=== PATIENT | male | born 1995 | race Caucasian/White ===

== ENCOUNTER 2019-01-05 12:23 | Emergency (ER) | payer BC, OTHER ==
[~2019-01-05] VITALS: Ht 182.9 cm; Wt 117.9 kg
--- NOTE | 2019-01-05 12:38 | ED General ---
General Chief Complaint: Cough/Cold/Flu Symptoms Stated Complaint: COUGHING UP BLOOD Nursing Triage Note: TO TRIAGE WITH COMPLAINTS OF SORE THROAT, FEVER, COUGH, AND COUGHING UP BLOOD. Nursing Sepsis Screen: Possible Sepsis Risk Source of Information: Patient Exam Limitations: No Limitations History of Present Illness Date Seen by Provider: Jan 05, 2019 Time Seen by Provider: 12:36 Initial Comments To ER with reports of sore throat, fever, cough. These began on Wednesday,12/31/18. Fever maximum at home was 101. No vomiting. Denies shortness of breath. The cough was initially nonproductive, then became somewhat productive and then it was noted to have streaks of blood in it. Nonsmoker. No history of this. Timing/Duration: 3-4 Days Severity: Moderate Allergies and Home Medications Allergies Coded Allergies: No Known Drug Allergies (Unverified , 01/05/19) Patient Home Medication List Home Medication List Reviewed: Yes Review of Systems Review of Systems Constitutional: see HPI, chills, fever EENTM: see HPI, nose congestion Respiratory: see HPI, cough Cardiovascular: no symptoms reported Genitourinary: no symptoms reported Musculoskeletal: no symptoms reported Skin: no symptoms reported Psychiatric/Neurological: No Symptoms Reported Hematologic/Lymphatic: No Symptoms Reported Past [id number] Hx Patient Social History Recent Foreign Travel: No Contact w/Someone Who Travel: No Recent Infectious Disease Expo: No Physical Exam Vital Signs Vital Signs - First Documented 01/05/19 12:27 Temp 100.1 Pulse 123 Resp 18 B/P (MAP) 141/106 (118) Pulse Ox 97 O2 Delivery Room Air Capillary Refill : Less Than 3 Seconds Height, Weight, BMI Height: 6'" Weight: 260lbs. oz. 117.095658tn; BMI Method:Stated General Appearance: No Apparent Distress, WD/WN, Obese, Other (is little tachycardic at about 125, normal oxygen saturation at 98%. Because of the tachycardia we'll do labs) Eyes: Bilateral Eye Normal Inspection, Bilateral Eye PERRL, Bilateral Eye EOMI HEENT: PERRL/EOMI, TMs Normal Neck: Full Range of Motion, Normal Inspection Respiratory: No Accessory Muscle Use, No Respiratory Distress; No Wheezing Cardiovascular: Normal Peripheral Pulses, Tachycardia Gastrointestinal: Normal Bowel Sounds, Non Tender, Soft Neurologic/Psychiatric: Alert, Oriented x3 Skin: Normal Color, Warm/Dry Progress/Results/Core Measures Suspected Sepsis Recent Fever Within 48 Hours: Yes Infection Criteria Present: Suspected New Infection New/Unexplained Altered Menta: No Sepsis Screen: Possible Sepsis Risk SIRS Temperature:100.1 Pulse: 123 Respiratory Rate: 18 Laboratory Tests 01/05/19 12:40: White Blood Count 14.4H Blood Pressure 141 /106 Mean: 118 Laboratory Tests 01/05/19 12:40: Creatinine 0.85, INR Comment 1.0, Platelet Count 330, Total Bilirubin 0.3 Results/Orders Lab Results Laboratory Tests Test 01/05/19 12:40 Range/Units White Blood Count 14.4 H 4.3-11.0 10^3/uL Red Blood Count 6.09 H 4.35-5.85 10^6/uL Hemoglobin 17.3 13.3-17.7 G/DL Hematocrit 50 40-54 % Mean Corpuscular Volume 82 80-99 FL Mean Corpuscular Hemoglobin 28 25-34 PG Mean Corpuscular Hemoglobin Concent 35 32-36 G/DL Red Cell Distribution Width 14.0 10.0-14.5 % Platelet Count 330 130-400 10^3/uL Mean Platelet Volume 10.5 H 7.4-10.4 FL Neutrophils (%) (Auto) 54 42-75 % Lymphocytes (%) (Auto) 30 12-44 % Monocytes (%) (Auto) 8 0-12 % Eosinophils (%) (Auto) 8 0-10 % Basophils (%) (Auto) 0 0-10 % Neutrophils # (Auto) 7.8 1.8-7.8 X 10^3 Lymphocytes # (Auto) 4.3 H 1.0-4.0 X 10^3 Monocytes # (Auto) 1.2 H 0.0-1.0 X 10^3 Eosinophils # (Auto) 1.1 H 0.0-0.3 10^3/uL Basophils # (Auto) 0.0 0.0-0.1 10^3/uL Neutrophils % (Manual) 51 % Lymphocytes % (Manual) 25 % Monocytes % (Manual) 11 % Eosinophils % (Manual) 11 % Basophils % (Manual) 0 % Band Neutrophils 2 % Blood Morphology Comment NORMAL Prothrombin Time 13.3 12.2-14.7 SEC INR Comment 1.0 0.8-1.4 D-Dimer 0.33 0.00-0.49 UG/ML Sodium Level 139 135-145 MMOL/L Potassium Level 4.4 3.6-5.0 MMOL/L Chloride Level 100 98-107 MMOL/L Carbon Dioxide Level 30 21-32 MMOL/L Anion Gap 9 5-14 MMOL/L Blood Urea Nitrogen 10 7-18 MG/DL Creatinine 0.85 0.60-1.30 MG/DL Estimat Glomerular Filtration Rate > 60 BUN/Creatinine Ratio 12 Glucose Level 110 H 70-105 MG/DL Calcium Level 9.9 8.5-10.1 MG/DL Corrected Calcium 8.5-10.1 MG/DL Total Bilirubin 0.3 0.1-1.0 MG/DL Aspartate Amino Transf (AST/SGOT) 19 5-34 U/L Alanine Aminotransferase (ALT/SGPT) 32 0-55 U/L Alkaline Phosphatase 113 40-136 U/L Total Protein 7.7 6.4-8.2 GM/DL Albumin 4.7 H 3.2-4.5 GM/DL My Orders Orders - JOSIANE LOWERY APRN Ns Iv 1000 Ml (Sodium Chloride 0.9%) (01/05/19 12:45) Ibuprofen Tablet (Motrin Tablet) (01/05/19 12:45) Cbc With Automated Diff (01/05/19 12:34) Fibrin Degradation Products (01/05/19 12:34) Comprehensive Metabolic Panel (01/05/19 12:34) Protime With Inr (01/05/19 12:34) Chest Pa/Lat (2 View) (01/05/19 12:34) Manual Differential (01/05/19 12:40) Medications Given in ED Current Medications Medications Dose Ordered Sig/[place] Route Start Time Stop Time Status Last Admin Dose Admin Ibuprofen 800 mg ONCE ONCE PO 01/05/19 12:45 01/05/19 12:46 DC 01/05/19 12:45 800 MG Vital Signs/I&O 01/05/19 12:27 Temp 100.1 Pulse 123 Resp 18 B/P (MAP) 141/106 (118) Pulse Ox 97 O2 Delivery Room Air Capillary Refill : Less Than 3 Seconds Blood Pressure Mean: 118 Departure Impression Primary Impression: Bronchitis Disposition: 01 HOME, SELF-CARE Condition: Stable Departure-Patient Inst. Decision time for Depature: 13:26 Patient Instructions: Acute Bronchitis, Adult (DC) Add. Discharge Instructions: 1. Antibiotics/steroids as directed 2. Return if any concerns 3. Follow-up doctor later next week All discharge instructions reviewed with patient and/or family. Voiced un derstanding. Scripts Azithromycin (Azithromycin) 250 Mg Tablet 250 MG PO UD, #6 TAB TAKE 2 TABLETS ON DAY ONE THEN TAKE 1 TABLET DAILY FOR FOUR MORE DAYS Prov: JOSIANE LOWERY APRN 01/05/19 Prednisone (Prednisone) 20 Mg Tab 40 MG PO DAILY, #8 TAB 0 Refills Prov: JOSIANE LOWERY APRN 01/05/19 Work/School Note: Work Release Form Date Seen in the Emergency Department: Jan 05, 2019 Return to Work: Jan 06, 2019 JOSIANE LOWERY APRN Jan 05, 2019 12:37
[2019-01-05] MEDS ORDERED: NS IV 1000 ML 1,000 ML IV SCH (12:45)
[2019-01-05] MEDS ORDERED: IBUPROFEN 800 MG (MOTRIN) TAB PO ONE (12:45)
[2019-01-05 12:48] LABS: BASOPHILS % (AUTO) 0 % (0-10); EOSINOPHILS # (AUTO) 1.1 10^3/uL (0.0-0.3); EOSINOPHILS % (AUTO) 8 % (0-10); HEMATOCRIT 50 % (40-54); HEMOGLOBIN 17.3 G/DL (13.3-17.7); LYMPHOCYTES # (AUTO) 4.3 X 10^3 (1.0-4.0); LYMPHOCYTES % (AUTO) 30 % (12-44); MEAN CORPUSCULAR HEMOGLOBIN 28 PG (25-34); MEAN CORPUSCULAR HGB CONC 35 G/DL (32-36); MEAN CORPUSCULAR VOLUME 82 FL (80-99); MEAN PLATELET VOLUME 10.5 FL (7.4-10.4); MONOCYTES # (AUTO) 1.2 X 10^3 (0.0-1.0); MONOCYTES % (AUTO) 8 % (0-12); NEUTROPHILS # (AUTO) 7.8 X 10^3 (1.8-7.8); NEUTROPHILS % (AUTO) 54 % (42-75); PLATELET COUNT 330 10^3/uL (130-400); WHITE BLOOD COUNT 14.4 10^3/uL (4.3-11.0)
[2019-01-05 13:04] LABS: BAND NEUTROPHILS 2 %; BASOPHILS % (MANUAL) 0 %; EOSINOPHILS % (MANUAL) 11 %; LYMPHOCYTES % (MANUAL) 25 %; MONOCYTES % (MANUAL) 11 %; NEUTROPHILS % (MANUAL) 51 %; RBC MORPH NORMAL
[2019-01-05 13:05] LABS: PROTHROMBIN TIME PATIENT 13.3 SEC (12.2-14.7)
[2019-01-05 13:09] LABS: ALANINE AMINOTRANSFERASE 32 U/L (0-55); ALBUMIN 4.7 GM/DL (3.2-4.5); ALKALINE PHOSPHATASE 113 U/L (40-136); BILIRUBIN,TOTAL 0.3 MG/DL (0.1-1.0); BUN/CREATININE RATIO 12; CALCIUM 9.9 MG/DL (8.5-10.1); CARBON DIOXIDE 30 MMOL/L (21-32); CHLORIDE 100 MMOL/L (98-107); CREATININE SERUM 0.85 MG/DL (0.60-1.30); GFR ESTIMATED > 60; GLUCOSE 110 MG/DL (70-105); POTASSIUM 4.4 MMOL/L (3.6-5.0); SODIUM 139 MMOL/L (135-145); TOTAL PROTEIN 7.7 GM/DL (6.4-8.2)
[2019-01-05 13:17] LABS: FIBRIN DEGRADATION PRODUCTS 0.33 UG/ML (0.00-0.49)
--- NOTE | 2019-01-05 13:24 | Diagnostic Imaging Report ---
INDICATION: Coughing. Chest pain. Hemoptysis. COMPARISON: None. FINDINGS: Frontal and lateral views of the chest demonstrate normal heart size and pulmonary vascularity. The lungs are clear. There are no signs of infiltrate, pleural effusions or pneumothoraces. The visualized osseous structures show no acute abnormalities. IMPRESSION: 1. No acute process. No signs of infiltrates, effusions or pneumothoraces. Dictated by: Dictated on workstation # [id number]
[2019-01-05] MEDS ORDERED: PRD20T PO (13:31)
[2019-01-05] MEDS ORDERED: AZIT250T12 PO (13:31)
[2019-01-05 13:50] VITALS: BP 147/103
== END 2019-01-05 13:50 | disposition home or self-care (01) ==
LOC: ER 12:24
DX: J40 Bronchitis, not specified as acute or chronic (principal)
CPT/HCPCS: 36415; 71046; 80053; 85007; 85027; 85379; 85610; 96360

== ENCOUNTER 2022-07-13 10:58 | Outpatient (RCR) | payer BC ==
[~2022-07-13 10:58] MED LIST: AZIT250T12 PO; PRD20T PO
== END 2022-07-31 | disposition home or self-care (01) ==
LOC: ONC 10:58
PROVIDERS: ATTEND Radiology Radiation Oncology
DX: Z53.9 Procedure and treatment not carried out, unspecified reason (principal)